=== PATIENT | male | born 1960 | race African-American/Black ===

== ENCOUNTER 2020-08-12 15:18 | Emergency (ER) | payer OTHER ==
[~2020-08-12] VITALS: Ht 175.3 cm; Wt 71.2 kg
[2020-08-12] MEDS ORDERED: IBUPROFEN 600 MG TAB PO ONE (17:45)
[2020-08-12] MEDS ORDERED: ACETAMINOPHEN 325 MG TAB PO ONE (18:00)
[2020-08-12 19:53] VITALS: BP 147/84
== END 2020-08-12 19:15 | disposition designated cancer center or children's hospital (05) ==
LOC: ER 15:18
DX: J34.1 Cyst and mucocele of nose and nasal sinus (principal); F17.210 Nicotine dependence, cigarettes, uncomplicated; Z20.822 Contact with and (suspected) exposure to COVID-19
CPT/HCPCS: 36415; 70450; 71045; 72125; 87426; 99285; C9803; U0003